=== PATIENT | male | born 2000 | race Caucasian/White ===

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

== ENCOUNTER → 2020-11-18 | Outpatient (CLI) | payer OTHER ==
--- NOTE | 2020-11-18 15:54 | US ---
EXAMINATION TYPE: US extremity nonvasc mass LT DATE OF EXAM: 11/18/2020 COMPARISON: NONE CLINICAL HISTORY: Soft tissue mass M79.9. lateral malleolus palpable at obvious red scab. history of bunion repair on the left Soft tissue scan of left malleolus shows soft tissue swelling/thickness of 0.5cm, contralateral side malleolus measures 0.1cm. No fluid collection noted. IMPRESSION: Soft tissue swelling without evidence for distinct mass.
== END | disposition home or self-care (01) ==
LOC: RADUSWWP 15:09 → EEVIPCON 15:40
PROVIDERS: ATTEND Podiatrist Foot & Ankle Surgery
DX: M79.89 Other specified soft tissue disorders (principal)

== ENCOUNTER → 2021-01-27 | Outpatient (CLI) | payer OTHER ==
--- NOTE | 2021-01-28 04:06 | MR ---
EXAMINATION TYPE: MR ankle LT wo con DATE OF EXAM: 01/27/2021 COMPARISON: None HISTORY: Left ankle pain and swelling for 4 months. Bursitis left lateral ankle. Multiplanar multiecho imaging of the left ankle was performed without contrast. There is mild ankle joint effusion with fluid posteriorly. The Achilles tendon is intact. There are s mall area of fluid signal at the attachment of the Achilles tendon consistent with a small cyst or serg ne bruise. The ankle mortise is anatomic. The collateral ligaments are intact. There is subcutaneous edema over the lateral malleolus. The medial and lateral flexor tendons of the ankle appear intact. T here is no evidence of a fracture. There is some artifact in the anterior mid foot that could be surg kyle or motion artifact. There is increased signal on the T2 images in the fifth metatarsal shaft. IMPRESSION: No fracture. No evidence of ligament or tendon tear. Small ankle joint effusion consistent with some nonspecific synovitis. Increased signal in the fifth metatarsal of uncertain significance. This could be edema from stress phenomenon. No fracture line seen. Small bone bruise or cyst formation in the p osterior calcaneus.
== END | disposition home or self-care (01) ==
LOC: RADMRIMAIN 15:14
PROVIDERS: ATTEND Podiatrist Foot & Ankle Surgery
DX: M25.472 Effusion, left ankle (principal)